=== PATIENT | male | born 1955 | race Caucasian/White ===

== ENCOUNTER 2020-06-14 17:59 | Observation (INO) | payer OTHER, SELFPAY ==
--- NOTE | 2020-06-14 18:07 | ED.NEUROSD ---
HPI - Neuro Symptoms/Deficit General Chief Complaint: Neuro Symptoms/Deficit Stated Complaint: AMS Time Seen by Provider: 06/14/20 18:07 Source: patient Mode of arrival: ambulatory Limitations: no limitations History of Present Illness HPI Narrative: 64 yo male with hx of global amnesia comes in with inability to remember today's events - he was last seen and heard from at 930AM today, no trauma, called his and stated he didn't know where he was, son notes this happened one other time and he was dx with amnesia Onset (ago): unknown Last Observed Normal: 09:30 Timing confirmed by: family member Location: altered (cannot remember today's events) History of same: Yes Severity: similar to previous episodes Quality: constant Relieving factors: none Exacerbating factors: none Context: other (unknown) On Anticoagulants: No Associated symptoms: denies other symptoms Treatments Prior to Arrival: none Related Data Allergies Allergy/AdvReac Type Severity Reaction Status Date / Time No Known Allergies Allergy Verified 06/14/20 18:08 Review of Systems Review of Systems: Constitutional : No Weight loss, No Fever, No Chills, No Fatigue ENT/Mouth : No sore throat, No Rhinorrhea Eyes: No Eye Pain, No Swelling, No Redness Cardiovascular : No Chest Pain, No SOB Respiratory : No Cough, No Sputum Gastrointestinal : No Nausea, No Vomiting, No Diarrhea Genitourinary : No Dysuria, No Urinary Frequency Musculoskeletal : No joint pain, No Myalgias Skin : No Skin Lesions, No rash Neuro : No Weakness, No Numbness, No Dizziness, No Headache, positive confusion Psych : No Anxiety/Panic, No Depression All other systems reviewed and are negative [facility] Past Medical History Medical History Global amnesia HTN (hypertension) Social History Social History (Updated 06/14/20 @ 18:18 by Beatriz Herrera DO) Alcohol intake: current Smoking Status: Never smoker Use of substances other than those prescribed or required for medical reasons: No Advance Directives: No Advance Directives Information Provided: No Physical Exam Vital Signs: Vital Signs: Vital Signs Temp Pulse Resp BP Pulse Ox 06/14/20 19:14 98.2 F 109 H 16 160/77 H 98 06/14/20 18:11 98.1 F 111 H 18 162/80 H 99 Body Mass Index 30.4 Appearance: Alert. Oriented X3. No acute distress. Eyes: Pupils equal, round and reactive to light. ENT: Pharynx normal. Neck: Normal inspection. Neck supple. CVS: Normal heart rate and rhythm. Pulses normal. Respiratory: No respiratory distress. Breath sounds normal. Abdomen: Soft and nontender. Skin: Skin warm and dry. Normal skin color. Normal skin turgor. Extremities: No lower extremity edema. No calf ttp Neuro: Oriented X 3. No motor deficit. No sensory deficit. no motor or sensory deficits, steady stable gait, cannot remember events from this morning, speech intact Course Course Course Narrative: still cannot remember today's events, will admit for further workup and observation until he improves, states this is very similar to his even 10 years ago MDM - Neuro Symptoms/Deficit MDM Narrative Medical decision making narrative: 64 yo male with hx of global amnesia who comes in last seen normal at 930am today - he cannot remember today's events, he is otherwise intact at this time, will need labs, CT head though this seems more amnesia like, EKG ordered, dispo per results and findings Lab Data Result diagrams: 06/14/20 18:26 06/14/20 18:26 Labs: Lab Results 06/14/20 06/14/20 06/14/20 Range/Units 18:26 18:26 18:26 WBC 9.6 (4.8-10.8) X10*3/uL RBC 5.34 (4.60-5.80) X10*6/uL Hgb 15.7 (14.0-18.0) g/dl Hct 45.9 (42-52) % MCV 86.0 (80-98) fL MCH 29.4 (27.0-33.0) pg MCHC 34.2 (31.0-36.0) g/dl RDW 12.2 (11.0-16.0) % Plt Count 282 (160-400) X10*3/uL MPV 9.3 L (9.4-12.4) fL Immature Gran % (Auto) 0.5 H (0.0-0.4) % Neut % (Auto) 81.5 H (45-73) % Lymph % (Auto) 14.0 L (20-40) % [place] % (Auto) 3.6 (2-11) % Eos % (Auto) 0.1 (0-4) % Baso % (Auto) 0.3 (0-2) % Lymph # (Auto) 1.3 (1.2-4.9) X10*3/uL [place] # (Auto) 0.3 (0.1-1.2) X10*3/uL Eos # (Auto) 0.0 (0.0-0.4) X10*3/uL Baso # (Auto) 0.0 (0.0-0.2) X10*3/uL Abs Immat Gran (auto) 0.05 H (0.00-0.03) X10*3/uL Absolute Neuts (auto) 7.8 (2.0-8.3) X10*3/uL Absolute Nucleated RBC 0.000 (0.0-0.012) X10*3/uL Nucleated RBC % (auto) 0.0 (0.0-0.2) /100WBC PT 13.9 H (10.8-13.0) SEC INR 1.2 H (0.9-1.1) APTT 34.5 (24.1-38.0) SEC Sodium 130 L (135-145) mmol/L Potassium 3.9 (3.3-5.1) mmol/l Chloride 94 L (96-108) mmol/L Carbon Dioxide 23 (22-29) mmol/L Anion Gap 17 (12-20) BUN 21 H (9-16) mg/dL Creatinine 1.03 (0.5-1.4) mg/dL Estim Creat Clear Calc 86.5 Estimated GFR > 60 Random Glucose 135 H (60-115) mg/dL Calcium 9.1 (8.4-10.2) mg/dL Magnesium 1.7 (1.6-2.6) mg/dL Total Bilirubin 0.6 (0.0-1.0) mg/dL Direct Bilirubin 0.2 (0.0-0.5) mg/dL AST 23 (5-37) U/L ALT 22 (0-40) U/L Alkaline Phosphatase 61 (39-117) U/L Total Protein 7.5 (6.5-8.0) g/dL Albumin 4.4 (3.5-5.0) g/dL Urine Color Urine Appearance Urine pH (5.0-8.0) Ur Specific [place] (1.005-1.025) Urine Protein (NEG-TRACE) MG/DL Urine Glucose (UA) (NEG) MG/DL Urine Ketones (NEG) MG/DL Urine Blood (NEG) Urine Nitrite (NEG) Ur Leukocyte Esterase (NEG) Ethyl Alcohol mg/dL 06/14/20 06/14/20 Range/Units 18:26 19:28 WBC (4.8-10.8) X10*3/uL RBC (4.60-5.80) X10*6/uL Hgb (14.0-18.0) g/dl Hct (42-52) % MCV (80-98) fL MCH (27.0-33.0) pg MCHC (31.0-36.0) g/dl RDW (11.0-16.0) % Plt Count (160-400) X10*3/uL MPV (9.4-12.4) fL Immature Gran % (Auto) (0.0-0.4) % Neut % (Auto) (45-73) % Lymph % (Auto) (20-40) % [place] % (Auto) (2-11) % Eos % (Auto) (0-4) % Baso % (Auto) (0-2) % Lymph # (Auto) (1.2-4.9) X10*3/uL [place] # (Auto) (0.1-1.2) X10*3/uL Eos # (Auto) (0.0-0.4) X10*3/uL Baso # (Auto) (0.0-0.2) X10*3/uL Abs Immat Gran (auto) (0.00-0.03) X10*3/uL Absolute Neuts (auto) (2.0-8.3) X10*3/uL Absolute Nucleated RBC (0.0-0.012) X10*3/uL Nucleated RBC % (auto) (0.0-0.2) /100WBC PT (10.8-13.0) SEC INR (0.9-1.1) APTT (24.1-38.0) SEC Sodium (135-145) mmol/L Potassium (3.3-5.1) mmol/l Chloride (96-108) mmol/L Carbon Dioxide (22-29) mmol/L Anion Gap (12-20) BUN (9-16) mg/dL Creatinine (0.5-1.4) mg/dL Estim Creat Clear Calc Estimated GFR Random Glucose (60-115) mg/dL Calcium (8.4-10.2) mg/dL Magnesium (1.6-2.6) mg/dL Total Bilirubin (0.0-1.0) mg/dL Direct Bilirubin (0.0-0.5) mg/dL AST (5-37) U/L ALT (0-40) U/L Alkaline Phosphatase (39-117) U/L Total Protein (6.5-8.0) g/dL Albumin (3.5-5.0) g/dL Urine Color YELLOW Urine Appearance CLEAR Urine pH 5.5 (5.0-8.0) Ur Specific [place] <= 1.005 (1.005-1.025) Urine Protein NEG (NEG-TRACE) MG/DL Urine Glucose (UA) NEG (NEG) MG/DL Urine Ketones NEG (NEG) MG/DL Urine Blood TRACE (NEG) Urine Nitrite NEG (NEG) Ur Leukocyte Esterase NEG (NEG) Ethyl Alcohol < 10 mg/dL ECG Data Attestation: I personally reviewed and interpreted this ECG as follows: ECG interpretation date: 06/14/20 ECG interpretation time: 19:16 Interpretation: Rate: 109 Rhythm: sinus tachycardia [place]: normal Normal P waves. Normal SARATH. Normal QRS complex. ST T wave : normal qTC: normal prior studies: no acute ischemia The study has been interpreted contemporaneously by me. . Discharge Plan Discharge Clinical Impression: Amnesia Patient Disposition: Admitted As Inpatient
--- NOTE | 2020-06-14 18:08 | ECG_ITS ---
Test Reason : NEURO Blood Pressure : / mmHG Vent. Rate : 109 BPM Atrial Rate : 109 BPM P-R Int : 164 ms QRS Dur : 096 ms QT Int : 348 ms P-R-T Axes : 069 076 061 degrees QTc Int : 468 ms Sinus tachycardia Possible Left atrial enlargement RSR' or QR pattern in V1 suggests right ventricular conduction delay Borderline criteria for No previous ECGs available Referred By: Beatriz Herrera Electronically Signed By:SINTIA BASURTO MD
--- NOTE | 2020-06-14 18:08 | CT_ITS ---
CT head/brain wo con CLINICAL INFORMATION: Endometrial COMPARISON: No prior CT scan available for comparison. TECHNIQUE: Department standard protocol. This CT examination was performed using dose optimization techniques as appropriate, variously including the following: *Automated exposure control *Adjustment of mA and/or kV according to patient size (this includes techniques or standardized protocols for targeted exams where dose is matched to indication/reason for exam; i.e. extremities or head) *Use of iterative reconstruction technique DLP: 754 mGy-cm FINDINGS: CEREBRAL HEMISPHERES: There is no evidence of intra-axial or extra-axial mass, hemorrhage or acute infarct. BRAIN PARENCHYMA: Normal potts-white matter differentiation. SUBDURAL SPACE: No bleed. BASAL GANGLIA AND PINEAL GLAND: Unremarkable VENTRICLES: Symmetric and normal in size. CEREBELLUM AND BRAINSTEM: No space-occupying mass, hemorrhage or acute infarct. CEREBELLOPONTINE ANGLES: No lesion found. ORBITS: No intraorbital mass. VESSELS: Unremarkable SKULL BASE: Unremarkable INCLUDED SINUSES AT SKULL BASE: Mucosal thickening left maxillary sinus. SKULL AND SKIN: No fracture or bone lesion found. CT/CT head/brain wo con IMPRESSION: No CT evidence of intracranial space-occupying mass, bleed or infarct.
[2020-06-14 18:11] VITALS: BP 162/80; PULSE 111; RESP 18; TEMP 36.7; O2SAT 99; BMI 30.4
[2020-06-14 18:42] LABS: MANUAL DIFF FLAG NO
[2020-06-14 18:43] LABS: Basophils Percent Auto 0.3 % (0-2); Eosinophils Percent Auto 0.1 % (0-4); Hematocrit 45.9 % (42-52); Hemoglobin 15.7 g/dl (14.0-18.0); Imm Gran Abs Auto 0.05 X10*3/uL (0.00-0.03); Imm Gran Pct Auto 0.5 % (0.0-0.4); Lymphocytes Absolute Auto 1.3 X10*3/uL (1.2-4.9); Mean Corpuscular HGB Conc 34.2 g/dl (31.0-36.0); Mean Corpuscular Hemoglobin 29.4 pg (27.0-33.0); Mean Platelet Volume 9.3 fL (9.4-12.4); Monocytes Absolute Auto 0.3 X10*3/uL (0.1-1.2); Monocytes Percent Auto 3.6 % (2-11); Neutrophils Absolute Auto 7.8 X10*3/uL (2.0-8.3); Neutrophils Percent Auto 81.5 % (45-73); Platelet Count 282 X10*3/uL (160-400); Red Blood Count 5.34 X10*6/uL (4.60-5.80); Red Cell Distribution Width 12.2 % (11.0-16.0); White Blood Count 9.6 X10*3/uL (4.8-10.8)
[2020-06-14 18:51] LABS: INTERNATIONAL NORM RATIO 1.2 (0.9-1.1); Prothrombin Time 13.9 SEC (10.8-13.0)
[2020-06-14 18:54] LABS: Partial Thromboplastin Time 34.5 SEC (24.1-38.0)
[2020-06-14 19:02] LABS: Ethanol < 10 mg/dL
[2020-06-14 19:06] LABS: Alanine Aminotransferase 22 U/L (0-40); Albumin Level 4.4 g/dL (3.5-5.0); Alkaline Phosphatase 61 U/L (39-117); Anion Gap 17 (12-20); Aspartate Amino Transferase 23 U/L (5-37); Bilirubin Direct 0.2 mg/dL (0.0-0.5); Bilirubin Total 0.6 mg/dL (0.0-1.0); Blood Urea Nitrogen 21 mg/dL (9-16); Calcium 9.1 mg/dL (8.4-10.2); Carbon Dioxide 23 mmol/L (22-29); Chloride 94 mmol/L (96-108); Creatinine Clr Calc Pharmacy 86.5; Estimated Glomerular Filt Rate > 60; Glucose Random 135 mg/dL (60-115); Magnesium 1.7 mg/dL (1.6-2.6); Potassium 3.9 mmol/l (3.3-5.1); Sodium 130 mmol/L (135-145); Total Protein 7.5 g/dL (6.5-8.0)
[2020-06-14 19:14] VITALS: BP 160/77; PULSE 109; RESP 16; TEMP 36.8; O2SAT 98
[2020-06-14] MEDS: 0.9 % Sodium Chloride 1,000 ML 999 ML IVCONT (19:25)
--- NOTE | 2020-06-14 19:29 | PC.NURSE ---
fluids infusing. no unilat neuro deficits. st on monitor. pt is calm, oriented to person/place but ca't remember recent past. this rn to update family in [place].
[2020-06-14 19:38] LABS: Glucose Urine UA NEG (NEG); Leukocyte Esterase Urine NEG (NEG); Nitrite Urine NEG (NEG); PH 5.5 (5.0-8.0); Specific Gravity - Urine <= 1.005 (1.005-1.025); Urine Blood TRACE (NEG); Urine Ketones NEG (NEG); Urine Protein NEG (NEG-TRACE)
[2020-06-14 19:39] LABS: Appearance Urine CLEAR; Color Urine YELLOW
[2020-06-14 20:40] LABS: RBC Urine 0-2 /HPF (0); WBC Urine 0 /HPF (0-4)
--- NOTE | 2020-06-14 21:23 | PC.NURSE ---
Pt continues to need frequent reorientationnnn. states that he was at their cabin in [facility] to close it up, arrived ad forgot why he was there. was in [place] and got 3 calls with same theme, pt couldn't rememver what he was doig there. Pt is calm, oriented to person and place. st on monitr.
[2020-06-14 21:29] VITALS: BP 144/98; PULSE 98; RESP 18; TEMP 36.6; O2SAT 98
--- NOTE | 2020-06-14 21:32 | PC.NURSE ---
MED REC COMPLETED, SPOUSE ALCON PROVIDING MED LIST. ALCON CELL [phone] WOULD LIKE TO BE NOTIFIED WHEN PT HAS ROOM UPSTAIRS
[2020-06-14 22:43] VITALS: BP 141/75; PULSE 112; RESP 18; O2SAT 97
--- NOTE | 2020-06-14 22:43 | PC.NURSE ---
o phone. no chages to memory deficits. updates on plan of care
[2020-06-14 23:18] LABS: SARS COV2 PCR INHOUSE NEGATIVE (Negative)
--- NOTE | 2020-06-14 23:29 | PC.NURSE ---
rn to rn with paola on floor
--- NOTE | 2020-06-14 23:31 | PM.IMHP ---
History of Present Illness Date of Service: 06/14/20 Chief Complaint: loss of memory this is a 64-year-old male with past medical history hypertension who presents to the hospital with complaints of loss of memory. Patient appears very confused, he is not oriented to to time but oriented to self and place. His family brought the patient in stating that patient left the house around 9:30 a.m. to go to the [employer] and they did not hear from him until noon. He called his stating that he is not sure where he is a why or how he got to where he was. The family brought him into the hospital with complaints that patient cannot remember any of the days event. patient does not remember anything prior to his presentation to the hospital. His family reports a history of 1 time episode of global amnesia multiple years ago, patient does not remember what happened then either. Per his the presentation was exactly similar to this time.. At this time patient is oriented to himself, to place, but he does not remember anything of today's event or yesterday. When I asked him what was the last thing he can remember he is not sure. He knows his , knows that he lives with his , knows the name and date of of his children, he knows his address but is unable to retain any information I gave him regarding date. Patient at this time and denies any headache, change in vision, no weakness numbness or tingling in any extremity. Denies any abdominal pain nausea or vomiting. No diarrhea constipation. No urinary symptoms and no lower extremity edema. On arrival to the ED patient hemodynamically stable with no significant abnormal vitals. Labs are significant for sodium of [address] negative past medical history: hypertension Surgical history: Denies family history: Denies social history: lives with his ,Denies tobacco alcohol or illicit drugs Review of Systems Review of Systems: Yes all other systems are reviewed and are negative [facility] Medical History Global amnesia HTN (hypertension) Social History Alcohol intake: never Smoking Status: Never smoker Use of substances other than those prescribed or required for medical reasons: No Advance Directives: No Advance Directives Information Provided: No Meds Allergies Allergy/AdvReac Type Severity Reaction Status Date / Time No Known Allergies Allergy Verified 06/14/20 18:08 Home Medications Medication Instructions Recorded Confirmed Type aspirin 81 mg 06/14/20 History indomethacin 2 cap PO TID 06/14/20 06/14/20 History lisinopril-hydrochlorothiazide 1 tab PO DAILY 06/14/20 06/14/20 History Physical Exam Vital Signs and Narrative: Vital Signs: Last Vital Signs Temp 97.8 F 06/14/20 21:29 Pulse 112 H 06/14/20 22:43 Resp 18 06/14/20 22:43 BP 141/75 H 06/14/20 22:43 Pulse Ox 97 06/14/20 22:43 Body Mass Index 30.4 Const: General: cooperative and no acute distress Orientation/consciousness: oriented to person and oriented to place Eyes: General: appearance normal, both eyes and all related structures Pupils: Equal, round and reactive pupils present Resp: Effort & Inspection: normal respiratory effort and able to speak in complete sentences Auscultation: clear to auscultation bilaterally Cardio: Rate: regular rate Rhythm: regular rhythm GI: Palpation (GI): Soft to palpation Auscultation: normal bowel sounds Skin: General skin exam: no rashes or lesions noted Neuro: General: oriented to person, oriented to place and Normal light touch and pain sensation Cranial nerves: Yes CN's II-XII intact bilaterally, Yes Equal, round and reactive pupils present and Yes Ability to bilaterally elevate shoulders present Cognition (Neuro): abnormal cognition ( unable to retain memory of date although I repeated the day to him multipl) Motor exam (neuro): 5/5 motor strength present throughout Extrem: General: Yes normal to inspection and Yes no pedal edema Results Labs Labs: Laboratory Tests 06/14/20 06/14/20 06/14/20 18:26 18:26 18:26 WBC 9.6 RBC 5.34 Hgb 15.7 Hct 45.9 MCV 86.0 MCH 29.4 MCHC 34.2 RDW 12.2 Plt Count 282 MPV 9.3 L Immature Gran % (Auto) 0.5 H Neut % (Auto) 81.5 H Lymph % (Auto) 14.0 L [place] % (Auto) 3.6 Eos % (Auto) 0.1 Baso % (Auto) 0.3 Lymph # (Auto) 1.3 [place] # (Auto) 0.3 Eos # (Auto) 0.0 Baso # (Auto) 0.0 Abs Immat Gran (auto) 0.05 H Absolute Neuts (auto) 7.8 Absolute Nucleated RBC 0.000 Nucleated RBC % (auto) 0.0 PT 13.9 H INR 1.2 H APTT 34.5 Sodium 130 L Potassium 3.9 Chloride 94 L Carbon Dioxide 23 Anion Gap 17 BUN 21 H Creatinine 1.03 Estim Creat Clear Calc 86.5 Estimated GFR > 60 Random Glucose 135 H Calcium 9.1 Magnesium 1.7 Total Bilirubin 0.6 Direct Bilirubin 0.2 AST 23 ALT 22 Alkaline Phosphatase 61 Total Protein 7.5 Albumin 4.4 Urine Color Urine Appearance Urine pH Ur Specific [place] Urine Protein Urine Glucose (UA) Urine Ketones Urine Blood Urine Nitrite Ur Leukocyte Esterase Urine RBC Urine WBC Urine WBC Clumps Ur Squamous Epith Cells Ur Renal Epithelial Cell Urine Crystals Seth Biurate Crystals Calcium Carbonate Cryst Calcium Phosphate Cryst Calcium Oxalate Crystal Leucine Crystals Cystine Crystals Uric Acid Crystals Triple Phos Crystals Tyrosine Crystals Other Crystals Amorphous Sediment Urine Bacteria Epithelial Casts Fatty Casts Hyaline Casts Granular Casts Waxy Casts RBC Casts WBC Casts Other Casts Urine Mucus Urine Trichomonas Urine Yeast Urine Sperm Ur Oval Fat Bodies Ethyl Alcohol Coronavirus (PCR) 06/14/20 06/14/20 06/14/20 18:26 19:28 19:28 WBC RBC Hgb Hct MCV MCH MCHC RDW Plt Count MPV Immature Gran % (Auto) Neut % (Auto) Lymph % (Auto) [place] % (Auto) Eos % (Auto) Baso % (Auto) Lymph # (Auto) [place] # (Auto) Eos # (Auto) Baso # (Auto) Abs Immat Gran (auto) Absolute Neuts (auto) Absolute Nucleated RBC Nucleated RBC % (auto) PT INR APTT Sodium Potassium Chloride Carbon Dioxide Anion Gap BUN Creatinine Estim Creat Clear Calc Estimated GFR Random Glucose Calcium Magnesium Total Bilirubin Direct Bilirubin AST ALT Alkaline Phosphatase Total Protein Albumin Urine Color Cancelled YELLOW Urine Appearance Cancelled CLEAR Urine pH Cancelled 5.5 Ur Specific [place] Cancelled <= 1.005 Urine Protein Cancelled NEG Urine Glucose (UA) Cancelled NEG Urine Ketones Cancelled NEG Urine Blood Cancelled TRACE Urine Nitrite Cancelled NEG Ur Leukocyte Esterase Cancelled NEG Urine RBC Cancelled 0-2 Urine WBC Cancelled 0 Urine WBC Clumps Cancelled Ur Squamous Epith Cells Cancelled NONE Ur Renal Epithelial Cell Cancelled Urine Crystals Cancelled [place] Biurate Crystals Cancelled Calcium Carbonate Cryst Cancelled Calcium Phosphate Cryst Cancelled Calcium Oxalate Crystal Cancelled Leucine Crystals Cancelled Cystine Crystals Cancelled Uric Acid Crystals Cancelled Triple Phos Crystals Cancelled Tyrosine Crystals Cancelled Other Crystals Cancelled Amorphous Sediment Cancelled Urine Bacteria Cancelled NONE Epithelial Casts Cancelled Fatty Casts Cancelled Hyaline Casts Cancelled Granular Casts Cancelled Waxy Casts Cancelled RBC Casts Cancelled WBC Casts Cancelled Other Casts Cancelled Urine Mucus Cancelled Urine Trichomonas Cancelled Urine Yeast Cancelled Urine Sperm Cancelled Ur Oval Fat Bodies Cancelled Ethyl Alcohol < 10 Coronavirus (PCR) 06/14/20 21:44 WBC RBC Hgb Hct MCV MCH MCHC RDW Plt Count MPV Immature Gran % (Auto) Neut % (Auto) Lymph % (Auto) [place] % (Auto) Eos % (Auto) Baso % (Auto) Lymph # (Auto) [place] # (Auto) Eos # (Auto) Baso # (Auto) Abs Immat Gran (auto) Absolute Neuts (auto) Absolute Nucleated RBC Nucleated RBC % (auto) PT INR APTT Sodium Potassium Chloride Carbon Dioxide Anion Gap BUN Creatinine Estim Creat Clear Calc Estimated GFR Random Glucose Calcium Magnesium Total Bilirubin Direct Bilirubin AST ALT Alkaline Phosphatase Total Protein Albumin Urine Color Urine Appearance Urine pH Ur Specific [place] Urine Protein Urine Glucose (UA) Urine Ketones Urine Blood Urine Nitrite Ur Leukocyte Esterase Urine RBC Urine WBC Urine WBC Clumps Ur Squamous Epith Cells Ur Renal Epithelial Cell Urine Crystals [place] Biurate Crystals Calcium Carbonate Cryst Calcium Phosphate Cryst Calcium Oxalate Crystal Leucine Crystals Cystine Crystals Uric Acid Crystals Triple Phos Crystals Tyrosine Crystals Other Crystals Amorphous Sediment Urine Bacteria Epithelial Casts Fatty Casts Hyaline Casts Granular Casts Waxy Casts RBC Casts WBC Casts Other Casts Urine Mucus Urine Trichomonas Urine Yeast Urine Sperm Ur Oval Fat Bodies Ethyl Alcohol Coronavirus (PCR) NEGATIVE Imaging CT scan - head: Radiologist's impression: IMPRESSION: No CT evidence of intracranial space-occupying mass, bleed or infarct. Assessment and Plan (1) Amnesia: Status: Acute (2) HTN (hypertension): Status: Acute this is a 64-year-old male with past medical history of hypertension who presents to the hospital with complaints of memory loss for 1 day. # Memory loss - stroke vs global amnesia Plan: - MRI - Neurology consult # Htn - Stable - Continue home meds Dvt ppx: Lovenox DOS: 06/14/2020
[2020-06-14 23:38] LABS: Creatinine Urine 10.13 mg/dL; Sodium Urine Random < 20.0 mmol/L
[2020-06-15] VITALS (8 sets, daily range): BP systolic 112–175; BP diastolic 69–79; PULSE 88–107; RESP 16–95; TEMP 36.1–37.4; O2SAT 97–98
[2020-06-15 01:04] LABS: Osmolality, Serum 298 mosm/kg (281-305)
[2020-06-15] MEDS: 0.9 % Sodium Chloride 1,000 ML 100 ML IVCONT ×2 (01:36→11:13)
[2020-06-15] MEDS: Enoxaparin Sodium 40 MG/0.4 ML SYRINGE SUBCUT (01:42)
[2020-06-15] MEDS: 0.9 % Sodium Chloride Flush 3 ML SYRINGE IVFLUSH ×2 (01:43→09:06)
[2020-06-15 02:16] LABS: Anion Gap 14 (12-20); Blood Urea Nitrogen 16 mg/dL (9-16); Carbon Dioxide 25 mmol/L (22-29); Chloride 103 mmol/L (96-108); Creatinine Clr Calc Pharmacy 97.9; Estimated Glomerular Filt Rate > 60; Glucose Random 121 mg/dL (60-115); Potassium 4.4 mmol/l (3.3-5.1); Sodium 138 mmol/L (135-145)
[2020-06-15 06:50] LABS: MANUAL DIFF FLAG NO
[2020-06-15 07:14] LABS: Basophils Percent Auto 0.3 % (0-2); Eosinophils Absolute Auto 0.1 X10*3/uL (0.0-0.4); Eosinophils Percent Auto 0.9 % (0-4); Hematocrit 47.1 % (42-52); Hemoglobin 15.8 g/dl (14.0-18.0); Imm Gran Abs Auto 0.04 X10*3/uL (0.00-0.03); Imm Gran Pct Auto 0.6 % (0.0-0.4); Lymphocytes Absolute Auto 1.9 X10*3/uL (1.2-4.9); Lymphocytes Percent Auto 30.1 % (20-40); Mean Corpuscular HGB Conc 33.5 g/dl (31.0-36.0); Mean Corpuscular Hemoglobin 29.4 pg (27.0-33.0); Mean Corpuscular Volume 87.7 fL (80-98); Mean Platelet Volume 9.5 fL (9.4-12.4); Monocytes Absolute Auto 0.6 X10*3/uL (0.1-1.2); Monocytes Percent Auto 9.1 % (2-11); Neutrophils Absolute Auto 3.7 X10*3/uL (2.0-8.3); Platelet Count 283 X10*3/uL (160-400); Red Blood Count 5.37 X10*6/uL (4.60-5.80); Red Cell Distribution Width 12.3 % (11.0-16.0); White Blood Count 6.4 X10*3/uL (4.8-10.8)
[2020-06-15 07:49] LABS: Anion Gap 14 (12-20); Blood Urea Nitrogen 15 mg/dL (9-16); Calcium 8.7 mg/dL (8.4-10.2); Carbon Dioxide 25 mmol/L (22-29); Chloride 104 mmol/L (96-108); Creatinine Clr Calc Pharmacy 103.6; Estimated Glomerular Filt Rate > 60; Glucose Random 108 mg/dL (60-115); Potassium 4.4 mmol/l (3.3-5.1); Sodium 139 mmol/L (135-145)
[2020-06-15] MEDS: Docusate Sodium 100 MG CAPSULE PO (09:05)
[2020-06-15] MEDS: lisinopriL 10 MG TABLET PO (09:05)
[2020-06-15] MEDS: hydroCHLOROthiazide 12.5 MG TABLET PO (09:06)
--- NOTE | 2020-06-15 14:08 | MHC.CM.PN ---
CM MET WITH PT AND HIS WHO WAS AT BEDSIDE. PT LIVES AT HOME WITH HIS AND IS INDEPENDENT WITH ALL CARE AND MOBILITY AT BASELINE. PT HAS NO SERVICES AND NO DME PT IS UNSURE IF HE HAS A HCP BUT IS UNABLE TO COMPLETE ONE AT THIS TIME. HE IS INTERESTED IN DOING ONE ONCE HIS MENTATION IMPROVES. PT DOES HAVE HEALTH INSURANCE/ COPY MADE OF INSURANCE CARD, PLACED IN CHART. OBSERVATION NOTICE DELIVERED CURRENT DC PLAN IS HOME WITH NO SERVICES PTS WILL TRANSPORT
--- NOTE | 2020-06-15 14:23 | P.PNIM_ITS ---
Subjective Subjective Date of Service: 06/15/20 Interval History: Patient seen and examined at bedside patient is more alert and oriented now patient denies any weakness Constitutional Constitutional: Denies weakness Cardiovascular Cardiovascular: Denies dyspnea Respiratory Respiratory: Denies dyspnea Gastrointestinal Gastrointestinal: Denies vomiting Musculoskeletal Musculoskeletal: Denies numbness Neurologic Neurologic: Denies numbness Physical Exam Vital Signs: Vital Signs: Vital Signs Temp Pulse Resp BP Pulse Ox 06/15/20 13:52 97 F 06/15/20 11:58 98 F 94 95 H 112/79 97 06/15/20 10:00 98.6 F 88 18 126/69 98 06/15/20 09:05 104 H 138/79 06/15/20 08:00 99.3 F 104 H 18 138/79 97 06/15/20 06:22 98.2 F 101 H 16 146/77 H 98 06/15/20 03:12 99.0 F 102 H 16 175/75 H 97 06/15/20 01:29 97.6 F 107 H 16 151/79 H 98 06/14/20 22:43 112 H 18 141/75 H 97 06/14/20 21:29 97.8 F 98 18 144/98 H 98 06/14/20 19:14 98.2 F 109 H 16 160/77 H 98 06/14/20 18:11 98.1 F 111 H 18 162/80 H 99 Body Mass Index 30.4 Const: General: cooperative and no acute distress Orientation/consciousn ess: oriented to person and oriented to place Eyes: General: appearance normal, both eyes and all related structures Pu pils: Equal, round and reactive pupils present Resp: Effort & Inspection: normal respiratory effort and able to speak in complete sentences Auscultation: clear to auscultation bilaterally Cardio: Rate: regular rate Rhythm: regular rhythm GI: Palpation (GI): Soft to palpation Auscultation: normal bowel sounds Skin: General skin exam: no rashes or lesions noted Neuro: General: oriented to person, oriented to place and Normal light touch and pain sensation Cranial nerves: Yes CN's II-XII intact bilaterally, Yes Equal, round and reactive pupils present and Yes Ability to bilaterally elevate shoulders present Cognition (Neuro): abnormal cognition ( unable to retain memory of date although I repeated the day to him multipl) Motor exam (neuro): 5/5 motor strength present throughout Extrem: General: Yes normal to inspection and Yes no pedal edema Objective Data Current Medications Generic Name Dose Route Start Last Admin Trade Name Freq PRN Reason Stop Dose Admin Acetaminophen 650 mg 06/14/20 21:23 Acetaminophen 325 Mg Tablet PO Q6H PRN Pain, Mild (Pain Scale 1-3) Docusate Sodium 100 mg 06/15/20 09:00 06/15/20 09:05 Docusate Sodium 100 Mg Capsule PO 100 mg BID DANIEL Administration Enoxaparin Sodium 40 mg 06/14/20 22:00 06/15/20 01:42 Enoxaparin Sodium 40 Mg/0.4 Ml Syringe SUBCUT 40 mg Q24H DANIEL Administration Hydrochlorothiazide 12.5 mg 06/15/20 09:00 06/15/20 09:06 Hydrochlorothiazide 12.5 Mg Tablet PO 12.5 mg DAILY DANIEL Administration Sodium Chloride 1,000 mls @ 100 mls/hr 06/14/20 21:30 06/15/20 11:13 Ns IVCONT 100 mls/hr .Q10H DANIEL Administration Lisinopril 10 mg 06/15/20 09:00 06/15/20 09:05 Lisinopril 10 Mg Tablet PO 10 mg DAILY DANIEL Administration Ondansetron HCl 4 mg 06/14/20 21:23 Ondansetron Hcl 4 Mg/2 Ml Vial IVPUSH Q8H PRN Nausea and Vomiting Pharmacy Consult 1 each 06/14/20 20:06 Consult Rx Perform Med Rec MISCELLANE ONCE PRN Consult order Sodium Chloride 3 ml 06/15/20 00:00 06/15/20 09:06 0.9 % Sodium Chloride Flush 3 Ml Syringe IVFLUSH 3 ml QSHIFT DANIEL Administration Labs CBC & Chem 7: 06/15/20 06:03 06/15/20 06:03 Assessment and Plan (1) Amnesia: Status: Acute (2) HTN (hypertension): Status: Acute Assessment and Plan: this is a 64-year-old male with past medical history of hypertension who presents to the hospital with complaints of memory loss for 1 day. Memory loss global amnesia vs stroke CT head on admission shows no acute abnormality confusion clearing up no focal deficit MRI brain pending neurology consult pending Htn continue lisinopril and hydrochlorothiazide Dvt ppx: Lovenox
--- NOTE | 2020-06-15 15:27 | P.CNNE_ITS ---
History of Present Illness Data of Consult Service Date: 06/15/20 Primary Care Provider: Lyndon Cancino MD HPI Reason for consult: sudden loss of memory for several hours this is a 64-year-old man with a history of hypertension who currently takes lisinopril hydrochlorothiazide and aspirin 81 mg who had a sudden onset of loss of memory. He remembers what she did in the morning and had breakfast with his and then for several hours he has no recall of anything that he did. 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 He has some spotty recall of being in the emergency room and a few events in the em ergency room and then starting late morning today and he has full recall of what has happened today. He had also had a retrograde amnesia yesterday but is not able to recall what happened the day before. There are several hours from 06/14/2020 that she has no recall of. He had no headache or motor deficits. A similar episode occurred about 7 years ago at which time he had a complete workup including an MRI of the brain which showed white matter nonspecific abnormalities related to age and hypertension. On this occasion he has had a CT scan of the head which is unremarkable. He now appears to be back to his baseline and has no complaints and feels fine. Review of Systems Constitutional: Constitutional: Denies weakness Eyes: Eyes: Reports no additional eye complaints ENT: Reports system reviewed and no additional complaints, except as documented and Reports Normal hearing present Cardiovascular: Cardiovascular: Reports no additional cardiovascular complaints Respiratory: Respiratory: Reports no additional respiratory complaints Gastrointestinal: Gastrointestinal: Reports no additional gastrointestinal complaints Genitourinary: Genitourinary: Reports no additional male genitourinary complaints Musculoskeletal: Musculoskeletal: Denies numbness Integumentary/Breasts: Skin/Breast: Reports system reviewed and no additional complaints, except as docu Neurologic: Reports Normal hearing present, Denies numbness and Denies weak ness Psychiatric: Psychiatric: Reports as per HPI Endocrine: Endocrine: Reports no additional endocrine complaints Hematologic/Lymphatic: Hematologic/Lymphatic: Reports no additional hematologic/lymphatic complaints Allergic/Immunologic: Allergic/Immunologic: Reports no additional allerg ic/immunologic complaints [facility] Past Medical History Medical History (Updated 06/15/20 @ 15:31 by Lucas Calvin MD) Global amnesia HTN (hypertension) Social History Social History Household Members: Spouse Housing: House Do you presently have visiting nurse or other home services: No Alcohol intake: never Smoking Status: Never smoker Use of substances other than those prescribed or required for medical reasons: No Currently Displaying Signs/Symptoms of Drug Intoxication Withdrawal: No Have you been hit, kicked, punched, or otherwise hurt by someone within the past year? If so, by whom?: No Do you feel safe in your current relationship?: Yes Is there a partner from a previous relationship who is making you feel unsafe now?: No Are you made to feel afraid or neglected: No Advance Directives: No Advance Directives Information Provided: No Do you have thoughts of harming others: None Do you have a plan to hurt others: No Plan Recently lost weight without trying: No service: No Current occupational status: employed Meds Allergies Allergy/AdvReac Type Severity Reaction Status Date / Time No Known Allergies Allergy Verified 06/14/20 18:08 Home Medications Medication Instructions Recorded Confirmed Type aspirin 81 mg 06/14/20 History indomethacin 2 cap PO TID 06/14/20 06/14/20 History lisinopril-hydrochlorothiazide 1 tab PO DAILY 06/14/20 06/14/20 History Physical Exam Vital Signs: Vital Signs: Vital Signs Temp Pulse Resp BP Pulse Ox 06/15/20 13:52 97 F 06/15/20 11:58 98 F 94 95 H 112/79 97 06/15/20 10:00 98.6 F 88 18 126/69 98 06/15/20 09:05 104 H 138/79 06/15/20 08:00 99.3 F 104 H 18 138/79 97 06/15/20 06:22 98.2 F 101 H 16 146/77 H 98 06/15/20 03:12 99.0 F 102 H 16 175/75 H 97 06/15/20 01:29 97.6 F 107 H 16 151/79 H 98 06/14/20 22:43 112 H 18 141/75 H 97 06/14/20 21:29 97.8 F 98 18 144/98 H 98 06/14/20 19:14 98.2 F 109 H 16 160/77 H 98 06/14/20 18:11 98.1 F 111 H 18 162/80 H 99 Body Mass Index 30.4 Const: General: cooperative, comfortable, no acute distress, well developed, alert and awake Nutritional Appearance: well nourished Orientation/consciousness: oriented to person, oriented to place and oriented to time Limitations: no limitations HENMT: Head: Yes normal to inspection, Yes normocephalic and Yes atraumatic Ears: hearing grossly normal bilaterally General nose exam: Normal external nose present Face and sinus: Yes normal facial exam Mouth: Normal oral and palatal mucosa present Eyes: General: appearance normal, both eyes and all related structures Visual Lew: normal visual lew by confrontation Alignment and Position: alignment normal Periorbital: periorbital findings normal Eyelids: Yes eyelids normal Conjunctivae: conjunctivae normal Sclerae: sclerae normal Corneas: corneas normal Pupils: Equal, round and reactive pupils present and Pupil accommodation reflex normal EOM: EOMs intact bilaterally Direct Ophthalmoscopy: normal light reflex Neck: Neck: Yes normal visual inspection, Yes full ROM and Yes no meningeal signs Thyroid: Thyroid normal Carotids: normal carotid upstroke and bounding pulses Chest: Chest palpation & inspection: normal inspection of the chest Resp: Effort & Inspection: normal respiratory effort Auscultation: clear to auscultation bilaterally Cardio: Rate: regular rate Rhythm: regular rhythm Heart sounds: S1 normal heart sound present and S2 normal heart sound present Peripheral pulses: Peripheral pulses 2+ throughout GI: Inspection: Yes normal to inspection Percussion: Yes normal to percussion Auscultation: normal bowel sounds Rectal Exam - Male: Yes deferred Back/Spine/Pelvis: Cervical Spine: normal cervical lordosis and cervical ROM normal Thoracic/Lumbar Spine: thoracic and lumbar spine normal to inspection Skin: General skin exam: no rashes or lesions noted Neuro: General: oriented to person, oriented to place, oriented to time, gait normal, tone normal, moves all extremities, Normal light touch and pain sensation, no meningeal signs, no focal motor deficits, CN's II-XI intact bilaterally, normal sensation to monofilament and deep tendon reflexes 2+ bilaterally Cranial nerves: Yes CN's II-XII intact bilaterally, Yes Equal, round and reactive pupils present, Yes Bilaterally intact EOM present, Yes Nystagmus not present, Yes Normal facial strength present, Yes Midline tongue present, Yes Normal gag reflex present, Yes Symmetric palate elevation present, Yes Normal hearing present and Yes Ability to bilaterally rotate head present Cognition (Neuro): normal cognition Speech: Other speech findings present (Neuro) Gait exam (Neuro): Normal gait present Motor exam (neuro): 5/5 motor strength present throughout, Pronator motor function not present, no trem or noted, no asterixis, Motor fasciculations not present, Normal motor muscle tone present throughout and Motor abnormalities not present Sensory Exam: Bilaterally intact graphesthesia Deep tendon reflexes (DTR's): Right triceps reflex intensity grade: 2+, Left triceps reflex intensity grade: 2+, Rt Biceps (C5, C6): 2+, Left biceps reflex intensity grade: 2+, Right brachioradialis reflex intensity grade: 2+, Left brachioradialis reflex intensity grade: 2+, Right patellar reflex intensity grade: 2+, Left patellar reflex intensity grade: 2+, Right ankle reflex intensity grade: 2+ and Left ankle reflex intensity g rade: 2+ Plantar Reflex Responses: downgoing: right, left and bilateral Coordination: [id number] test normal, [id number]-[id number] test normal, tandem gait normal and Romberg test negative Pupils: Normal pupillary reactivity/response: bilateral Extrem: General: Yes normal to inspection, Yes normal exam except as noted and Yes no pedal edema Psych: Appearance: grossly normal Mental Status: mental status grossly normal Speech and movement: Normal speech and movement present and Clear speech present Affect: normal affect Attitude: cooperative Thought process: Normal thought process present Results Labs CBC & Chem 7: 06/15/20 06:03 06/15/20 06:03 Labs: Short CBC 06/14/20 06/15/20 Range/Units 18:26 06:03 WBC 9.6 6.4 (4.8-10.8) X10*3/uL Hgb 15.7 15.8 (14.0-18.0) g/dl Hct 45.9 47.1 (42-52) % Plt Count 282 283 (160-400) X10*3/uL BMP 06/14/20 06/15/20 06/15/20 18:26 01:38 06:03 Sodium 130 L 138 139 Potassium 3.9 4.4 4.4 Chloride 94 L 103 104 Carbon Dioxide 23 25 25 BUN 21 H 16 15 Creatinine 1.03 0.91 0.86 Calcium 9.1 9.0 8.7 Liver Function 06/14/20 Range/Units 18:26 Total Bilirubin 0.6 (0.0-1.0) mg/dL Direct Bilirubin 0.2 (0.0-0.5) mg/dL AST 23 (5-37) U/L ALT 22 (0-40) U/L Alkaline Phosphatase 61 (39-117) U/L Albumin 4.4 (3.5-5.0) g/dL Urine 06/14/20 06/14/20 Range/Units 19:28 19:28 Urine Color Cancelled YELLOW Urine Appearance Cancelled CLEAR Urine pH Cancelled 5.5 Ur Specific [place] Cancelled <= 1.005 Urine Protein Cancelled NEG Urine Glucose (UA) Cancelled NEG Assessment and Plan (1) Transient global amnesia: Problem details: several hours of memory loss with no recall Status: Acute he is now back to his baseline and is able to form new memories. He can have outpatient workup with an EEG. Another MRI is not necessary. In the major ity of cases of transient global amnesia no cause is found. (2) HTN (hypertension): Status: Acute Continue current blood pressure medications for BP control
--- NOTE | 2020-06-15 15:38 | PM.DS ---
DS: Providers Provider Date of admission: 06/14/20 21:25 Primary care physician: Lyndon Cancino MD Consults: 06/14/20 21:25 Consult to Neurology Routine Consulting Provider: [facility] Reason for consultation: Amnesia DS: Diagnosis Discharge Diagnosis (1) Transient global amnesia: Status: Acute Problem details: several hours of memory loss with no recall (2) HTN (hypertension): Status: Acute DS: Summary Hospital Course Hospital Course: 64-year-old male admitted with transient global amnesia , CT head on admission shows no acute abnormality, patient was monitored on telemetry, patient's confusion resolved, patient's mental status was back to baseline, patient was not able to recall the event, neurology was consulted reconciled likely transient global amnesia and now patient back to baseline, recommended no need for MRI brain , patient was cleared by Neurology, patient was stable discharged home, patient will follow-up neurology as outpatient for EEG Time Spent with Patient Time attestation: Total time spent providing and/or coordinating discharge services: Physical Exam Vital Signs: Vital Signs: Vital Signs Temp Pulse Resp BP Pulse Ox 06/15/20 13:52 97 F 06/15/20 11:58 98 F 94 95 H 112/79 97 06/15/20 10:00 98.6 F 88 18 126/69 98 06/15/20 09:05 104 H 138/79 06/15/20 08:00 99.3 F 104 H 18 138/79 97 06/15/20 06:22 98.2 F 101 H 16 146/77 H 98 06/15/20 03:12 99.0 F 102 H 16 175/75 H 97 06/15/20 01:29 97.6 F 107 H 16 151/79 H 98 06/14/20 22:43 112 H 18 141/75 H 97 06/14/20 21:29 97.8 F 98 18 144/98 H 98 06/14/20 19:14 98.2 F 109 H 16 160/77 H 98 06/14/20 18:11 98.1 F 111 H 18 162/80 H 99 Body Mass Index 30.4 Const: General: cooperative and no acute distress Orientation/consciousness: oriented to person and oriented to place Eyes: General: appearance normal, both eyes and all related structures Pupils: Equal, round and reactive pupils present Resp: Effort & Inspection: normal respiratory effort and able to speak in complete sentences Auscultation: clear to auscultation bilaterally Cardio: Rate: regular rate Rhythm: regular rhythm GI: Palpation (GI): Soft to palpation Auscultation: normal bowel sounds Skin: General skin exam: no rashes or lesions noted Neuro: General: oriented to person, oriented to place and Normal light touch and pain sensation Cranial nerves: Yes CN's II-XII intact bilaterally, Yes Equal, round and reactive pupils present and Yes Ability to bilaterally elevate shoulders present Cognition (Neuro): abnormal cognition ( unable to retain memory of date although I repeated the day to him multipl) Motor exam (neuro): 5/5 motor strength present throughout Extrem: General: Yes normal to inspection and Yes no pedal edema DS: Data Data Completed and Pending Labs on day of discharge: Labs from last 24 hours 06/15/20 06/15/20 06/15/20 06:03 06:03 01:38 WBC 6.4 RBC 5.37 Hgb 15.8 Hct 47.1 MCV 87.7 MCH 29.4 MCHC 33.5 RDW 12.3 Plt Count 283 MPV 9.5 Immature Gran % (Auto) 0.6 H Neut % (Auto) 59.0 Lymph % (Auto) 30.1 [place] % (Auto) 9.1 Eos % (Auto) 0.9 Baso % (Auto) 0.3 Lymph # (Auto) 1.9 [place] # (Auto) 0.6 Eos # (Auto) 0.1 Baso # (Auto) 0.0 Abs Immat Gran (auto) 0.04 H Absolute Neuts (auto) 3.7 Absolute Nucleated RBC 0.000 Nucleated RBC % (auto) 0.0 PT INR APTT Sodium 139 138 Potassium 4.4 4.4 Chloride 104 103 Carbon Dioxide 25 25 Anion Gap 14 14 BUN 15 16 Creatinine 0.86 0.91 Estim Creat Clear Calc 103.6 97.9 Estimated GFR > 60 > 60 Random Glucose 108 121 H Osmolality Calcium 8.7 9.0 Magnesium Total Bilirubin Direct Bilirubin AST ALT Alkaline Phosphatase Total Protein Albumin Urine Color Urine Appearance Urine pH Ur Specific [place] Urine Protein Urine Glucose (UA) Urine Ketones Urine Blood Urine Nitrite Ur Leukocyte Esterase Urine RBC Urine WBC Urine WBC Clumps Ur Squamous Epith Cells Ur Renal Epithelial Cell Urine Crystals [place] Biurate Crystals Calcium Carbonate Cryst Calcium Phosphate Cryst Calcium Oxalate Crystal Leucine Crystals Cystine Crystals Uric Acid Crystals Triple Phos Crystals Tyrosine Crystals Other Crystals Amorphous Sediment Urine Bacteria Epithelial Casts Fatty Casts Hyaline Casts Granular Casts Waxy Casts RBC Casts WBC Casts Other Casts Urine Mucus Urine Trichomonas Urine Yeast Urine Sperm Ur Oval Fat Bodies Ur Random Sodium Urine Creatinine Ethyl Alcohol Coronavirus (PCR) 06/14/20 06/14/20 06/14/20 23:20 22:40 21:44 WBC RBC Hgb Hct MCV MCH MCHC RDW Plt Count MPV Immature Gran % (Auto) Neut % (Auto) Lymph % (Auto) [place] % (Auto) Eos % (Auto) Baso % (Auto) Lymph # (Auto) [place] # (Auto) Eos # (Auto) Baso # (Auto) Abs Immat Gran (auto) Absolute Neuts (auto) Absolute Nucleated RBC Nucleated RBC % (auto) PT INR APTT Sodium Potassium Chloride Carbon Dioxide Anion Gap BUN Creatinine Estim Creat Clear Calc Estimated GFR Random Glucose Osmolality 298 Calcium Magnesium Total Bilirubin Direct Bilirubin AST ALT Alkaline Phosphatase Total Protein Albumin Urine Color Urine Appearance Urine pH Ur Specific [place] Urine Protein Urine Glucose (UA) Urine Ketones Urine Blood Urine Nitrite Ur Leukocyte Esterase Urine RBC Urine WBC Urine WBC Clumps Ur Squamous Epith Cells Ur Renal Epithelial Cell Urine Crystals [place] Biurate Crystals Calcium Carbonate Cryst Calcium Phosphate Cryst Calcium Oxalate Crystal Leucine Crystals Cystine Crystals Uric Acid Crystals Triple Phos Crystals Tyrosine Crystals Other Crystals Amorphous Sediment Urine Bacteria Epithelial Casts Fatty Casts Hyaline Casts Granular Casts Waxy Casts RBC Casts WBC Casts Other Casts Urine Mucus Urine Trichomonas Urine Yeast Urine Sperm Ur Oval Fat Bodies Ur Random Sodium < 20.0 Urine Creatinine 10.13 Ethyl Alcohol Coronavirus (PCR) NEGATIVE 06/14/20 06/14/20 06/14/20 19:28 19:28 18:26 WBC RBC Hgb Hct MCV MCH MCHC RDW Plt Count MPV Immature Gran % (Auto) Neut % (Auto) Lymph % (Auto) [place] % (Auto) Eos % (Auto) Baso % (Auto) Lymph # (Auto) [place] # (Auto) Eos # (Auto) Baso # (Auto) Abs Immat Gran (auto) Absolute Neuts (auto) Absolute Nucleated RBC Nucleated RBC % (auto) PT INR APTT Sodium Potassium Chloride Carbon Dioxide Anion Gap BUN Creatinine Estim Creat Clear Calc Estimated GFR Random Glucose Osmolality Calcium Magnesium Total Bilirubin Direct Bilirubin AST ALT Alkaline Phosphatase Total Protein Albumin Urine Color YELLOW Cancelled Urine Appearance CLEAR Cancelled Urine pH 5.5 Cancelled Ur Specific [place] <= 1.005 Cancelled Urine Protein NEG Cancelled Urine Glucose (UA) NEG Cancelled Urine Ketones NEG Cancelled Urine Blood TRACE Cancelled Urine Nitrite NEG Cancelled Ur Leukocyte Esterase NEG Cancelled Urine RBC 0-2 Cancelled Urine WBC 0 Cancelled Urine WBC Clumps Cancelled Ur Squamous Epith Cells NONE Cancelled Ur Renal Epithelial Cell Cancelled Urine Crystals Cancelled [place] Biurate Crystals Cancelled Calcium Carbonate Cryst Cancelled Calcium Phosphate Cryst Cancelled Calcium Oxalate Crystal Cancelled Leucine Crystals Cancelled Cystine Crystals Cancelled Uric Acid Crystals Cancelled Triple Phos Crystals Cancelled Tyrosine Crystals Cancelled Other Crystals Cancelled Amorphous Sediment Cancelled Urine Bacteria NONE Cancelled Epithelial Casts Cancelled Fatty Casts Cancelled Hyaline Casts Cancelled Granular Casts Cancelled Waxy Casts Cancelled RBC Casts Cancelled WBC Casts Cancelled Other Casts Cancelled Urine Mucus Cancelled Urine Trichomonas Cancelled Urine Yeast Cancelled Urine Sperm Cancelled Ur Oval Fat Bodies Cancelled Ur Random Sodium Urine Creatinine Ethyl Alcohol < 10 Coronavirus (PCR) 06/14/20 06/14/20 06/14/20 18:26 18:26 18:26 WBC 9.6 RBC 5.34 Hgb 15.7 Hct 45.9 MCV 86.0 MCH 29.4 MCHC 34.2 RDW 12.2 Plt Count 282 MPV 9.3 L Immature Gran % (Auto) 0.5 H Neut % (Auto) 81.5 H Lymph % (Auto) 14.0 L [place] % (Auto) 3.6 Eos % (Auto) 0.1 Baso % (Auto) 0.3 Lymph # (Auto) 1.3 [place] # (Auto) 0.3 Eos # (Auto) 0.0 Baso # (Auto) 0.0 Abs Immat Gran (auto) 0.05 H Absolute Neuts (auto) 7.8 Absolute Nucleated RBC 0.000 Nucleated RBC % (auto) 0.0 PT 13.9 H INR 1.2 H APTT 34.5 Sodium 130 L Potassium 3.9 Chloride 94 L Carbon Dioxide 23 Anion Gap 17 BUN 21 H Creatinine 1.03 Estim Creat Clear Calc 86.5 Estimated GFR > 60 Random Glucose 135 H Osmolality Calcium 9.1 Magnesium 1.7 Total Bilirubin 0.6 Direct Bilirubin 0.2 AST 23 ALT 22 Alkaline Phosphatase 61 Total Protein 7.5 Albumin 4.4 Urine Color Urine Appearance Urine pH Ur Specific [place] Urine Protein Urine Glucose (UA) Urine Ketones Urine Blood Urine Nitrite Ur Leukocyte Esterase Urine RBC Urine WBC Urine WBC Clumps Ur Squamous Epith Cells Ur Renal Epithelial Cell Urine Crystals [place] Biurate Crystals Calcium Carbonate Cryst Calcium Phosphate Cryst Calcium Oxalate Crystal Leucine Crystals Cystine Crystals Uric Acid Crystals Triple Phos Crystals Tyrosine Crystals Other Crystals Amorphous Sediment Urine Bacteria Epithelial Casts Fatty Casts Hyaline Casts Granular Casts Waxy Casts RBC Casts WBC Casts Other Casts Urine Mucus Urine Trichomonas Urine Yeast Urine Sperm Ur Oval Fat Bodies Ur Random Sodium Urine Creatinine Ethyl Alcohol Coronavirus (PCR) Discharge Plan Discharge Anticipated Discharge Date/Time: 06/15/20 15:37 Patient Disposition: Home, Self-Care Referrals: Lyndon Cancino MD [Primary Care Provider] - Discharge Medications: Continued indomethacin 25 mg capsule 2 cap PO TID RF: 0 lisinopril-hydrochlorothiazide 10-12.5 mg tablet 1 tab PO DAILY RF: 0 aspirin 81 mg 81 mg RF: 0 Discharge Orders: Discharge Order (Routine); Ordered 06/15/20 Ordered By: Brian Ybarra Diet: low fat, low cholesterol Activity on Discharge: As tolerated Visit Report Forms: Patient Portal Discharge page Care Plan Goals: see discharge instructions Health Concerns: see discharge instructions Plan of Treatment: see discharge instructions
== END 2020-06-15 16:25 | disposition home or self-care (01) ==
LOC: HO.ED 21:21 → HO.IMC 22:22
PROVIDERS: Admitting Provider Internal Medicine; Emergency Provider Emergency Medicine; PCP Internal Medicine; Visit Provider Internal Medicine
DX: G45.4 Transient global amnesia (principal); I10 Essential (primary) hypertension; R00.0 Tachycardia, unspecified; Z20.828 Contact with and (suspected) exposure to other viral communicable diseases; Z79.82 Long term (current) use of aspirin; Z79.899 Other long term (current) drug therapy
CPT/HCPCS: 36415; 70450; 80048; 80076; 80320; 81001; 83735; 83930; 84300; 85025; 85610; 85730; 87635; 93005; 96361; 96372; 96374; 99219; 99223; 99285; J1650